=== PATIENT | female | born 1990 | race Caucasian/White ===

== ENCOUNTER 2021-04-01 18:27 | Emergency (ER) | payer MEDICARE ==
[~2021-04-01] VITALS: Ht 165.1 cm; Wt 106.6 kg
[2021-04-01 19:33] VITALS: BP 133/79
[2021-04-01] MEDS ORDERED: IBUPROFEN 600 MG TABLET PO ONE (20:00)
[2021-04-01] MEDS ORDERED: predniSONE 20 MG TABLET PO ONE (20:00)
[2021-04-01] MEDS ORDERED: ALBU18HF2 INH (20:23)
[2021-04-01] MEDS ORDERED: ALBUT2 CONTNEB (20:23)
[2021-04-01] MEDS ORDERED: BENZ-13 PO (20:23)
[2021-04-01] MEDS ORDERED: PRED50TA PO (20:23)
--- NOTE | 2021-04-01 20:56 | NUR ---
Patient discharged to home in stable condition. Written and verbal after care instructions given. Patient verbalizes understanding of instruction.
--- NOTE | 2021-04-02 21:45 | NUR ---
REC'D A CALL FROM LAB W/ POSITIVE COVID RESULTS. CALLED PT W/ NO ANSWER. LEFT A VOICE MESSAGE. GOLD FLOWERS Z. MADE AWARE OF THE TEST RESULT
--- NOTE | 2021-04-03 07:28 | NUR ---
CALLED PT REGARDING HER COVID RESULTS. W/ NO ANSWER. LEFT A VOICE MESSAGE.
== END 2021-04-01 20:56 | disposition home or self-care (01) ==
LOC: ER 18:33
DX: U07.1 COVID-19 (principal); J45.909 Unspecified asthma, uncomplicated; R00.0 Tachycardia, unspecified; G40.909 Epilepsy, unspecified, not intractable, without status epilepticus; Z88.6 Allergy status to analgesic agent; Z88.1 Allergy status to other antibiotic agents; Z88.8 Allergy status to other drugs, medicaments and biological substances
CPT/HCPCS: 71045-TC; C9803; U0003